=== PATIENT | female | born 1955 | race Two or more races ===

== ENCOUNTER → 2017-07-18 | Outpatient (CLI) | payer BC ==
--- NOTE | 2017-07-18 12:42 | RADIOLOGY REPORT (SQ) ---
EXAM DESCRIPTION: SHOULDER RIGHT 2 OR MORE VIEWS COMPLETED DATE/TIME: 07/18/2017 11:51 am REASON FOR STUDY: PAIN IN RIGHT SHOULDER COMPARISON: None. NUMBER OF VIEWS: Three views of the shoulder. LIMITATIONS: None. FINDINGS: Normal bone density. No fracture or bone lesion. Mild calcific tendinitis in the rotator cuff. Clear right lung. OTHER: No other significant finding. IMPRESSION: Right rotator cuff calcific tendinitis. TECHNICAL DOCUMENTATION: JOB ID: [id number] Reading location - IP/workstation name: [email or web address]
== END ==
LOC: OD 11:25
PROVIDERS: ATTEND Nurse Practitioner Family
DX: M25.511 Pain in right shoulder (principal); M75.31 Calcific tendinitis of right shoulder